=== PATIENT | female | born 1985 ===

== ENCOUNTER 2017-11-11 09:43 | Emergency (ER) | payer OTHER ==
[2017-11-11 09:44] VITALS: BMI 31.1
[2017-11-11 10:04] VITALS: O2SAT 100
--- NOTE | 2017-11-11 10:35 | C.PDOC ---
History Of Present Illness 32 year old female presents to the ED for evaluation of right upper quadrant and right lower quadrant pain which began 6 days ago. Patient also reports nausea. She denies fever, diarrhea, or UTI symptoms. Patient's LMP was 10/19. Patient denies VB. PSH Csection. Patient has been NPO since this morning. History obtained via embroidery operator. VIA TRANS RUQ/RLQ PAIN X 6 DAYS. WORSE W EATING. +NAUSEA NO FEVER. NO DIARRHEA, UTI SX. LMP 10/19. DENIES VB. PSH CSECT. NPO SINCE THIS MORNING. EXAM MOD DIST NONTOXIC HEENT MMM ABD +RUQ/RLQ MOD SOFT NO R/G REMAINDER NEG Time Seen by Provider: 11/11/17 10:03 Chief Complaint (Nursing): Abdominal Pain History Per: Patient History/Exam Limitations: no limitations Onset/Duration Of Symptoms: Days (6) Current Symptoms Are (Timing): Still Present Location Of Pain/Discomfort: RUQ, RLQ Radiation Of Pain To:: None Quality Of Discomfort: "Pain" Associated Symptoms: Nausea. denies: Fever, Chills, Urinary Symptoms Additional History Per: Patient Past Medical History Reviewed: Historical Data, Nursing Documentation, Vital Signs Vital Signs: Last Vital Signs Temp 98.9 F 11/11/17 09:54 Pulse 112 H 11/11/17 09:54 Resp 17 11/11/17 09:54 BP 102/56 L 11/11/17 09:54 Pulse Ox 100 11/11/17 13:31 - Medical History PMH: Asthma, TIA Denies: Chronic Kidney Disease Surgical History: No Surg Hx - [facility] Procedures BILAT TUBAL DIVISION NEC (04/17/15) MONITORING NOS (04/04/15) LOW CERVICAL (04/17/15) MEDICAL INDUCTION LABOR (04/17/15) PACKED CELL TRANSFUSION (12/13/14) Family History: States: Unknown Family Hx - Social History Hx Alcohol Use: No Hx Substance Use: No - Immunization History Hx Tetanus Toxoid Vaccination: No Hx Influenza Vaccination: Yes Hx Pneumococcal Vaccination: No Review Of Systems Constitutional: Negative for: Fever, Chills Gastrointestinal: Positive for: Nausea, Abdominal Pain (right upper quadrant, right lower quadrant ). Negative for: Diarrhea Genitourinary: Negative for: Dysuria, Frequency, Hematuria Physical Exam - Physical Exam Appears: Non-toxic, Other (in moderate distress ) Skin: Normal Color, Warm, Dry Head: Atraumatic, Normacephalic Eye(s): bilateral: Normal Inspection Ear(s): Bilateral: Normal Nose: Normal, No Discharge Oral Mucosa: Moist Throat: Normal, No Erythema, No Exudate Neck: Supple Chest: Symmetrical, No Deformity, No Tenderness Cardiovascular: Rhythm Regular, No Murmur Respiratory: Normal Breath Sounds, No Rales, No Rhonchi, No Wheezing Gastrointestinal/Abdominal: Soft (moderate), Tenderness (to right upper and lower quadrants ), No Guarding, No Rebound Extremity: Normal ROM, Capillary Refill (less than 2 seconds) Neurological/Psych: Oriented x3, Normal Speech, Normal Cognition ED Course And Treatment - Laboratory Results Result Diagrams: 11/11/17 10:59 11/11/17 10:59 O2 Sat by Pulse Oximetry: 100 (on RA ) Pulse Ox Interpretation: Normal Progress Note: Bloodwork, urinalysis, Abdomen US, CT A/P ordered and reviewed. Morphine IVP, Phenergan IM, Zofran IVP, IV Fluids administered. Progress - Re-Evaluation Re-evaluation Note: 11/11/17 13:20 LABS WNL, CT AND US REPORTS REVIEWED. NO SIGNS ACUTE ABD. WILL US RO TORSION/ RUPTURED CYST - Data Reviewed Data Reviewed: Lab, Diagnostic imaging, Old records Disposition Counseled Patient/Family Regarding: Studies Performed, Diagnosis, Need For Followup, Rx Given - Disposition Referrals: [facility] [Outside] [facility] [Outside] Disposition: HOME/ ROUTINE Disposition Time: 15:02 Condition: IMPROVED Prescriptions: Tramadol HCl [Ultram] 50 mg PO QID #20 tab Instructions: Acute Abdomen (Belly Pain), Adult (DC) Forms: [employer] (Burmese), Work Excuse Print Language: UZBEK - Clinical Impression Clinical Impression: Abdominal pain - Scribe Statement The provider has reviewed the documentation as recorded by the Scribe (Azalea Hanna) Provider Attestation: All medical record entries made by the Scribe were at my direction and personally dictated by me. I have reviewed the chart and agree that the record accurately reflects my personal performance of the history, physical exam, medical decision making, and the department course for this patient. I have also personally directed, reviewed, and agree with the discharge instructions and disposition.
[2017-11-11] MEDS ORDERED: Sodium Chloride 0.9% 1,000 ML IV ONE (10:40)
[2017-11-11] MEDS ORDERED: Sodium Chloride 0.9% 1,000 ML ONE (10:55)
[2017-11-11] MEDS ORDERED: Morphine 4 MG/ML VIAL ONE (10:55)
[2017-11-11 11:05] LABS: BASO # 0.1 K/uL (0.0-0.2); BASO % 1.3 % (0.0-2.0); EOS # 0.1 K/uL (0.0-0.7); HEMOGLOBIN 8.5 g/dL (11.0-16.0); LYMPH # 1.3 K/uL (1.0-4.3); LYMPH % 22.4 % (20.0-40.0); MEAN CELL VOLUME 64.1 fL (81.0-99.0); MEAN CORPUSCULAR HEMOGLOBIN 19.4 pg (27.0-31.0); MEAN CORPUSCULAR HGB CONC 30.3 g/dL (33.0-37.0); MEAN PLATELET VOLUME 8.9 fL (7.2-11.7); MONO # 0.7 K/uL (0.0-0.8); MONO % 11.9 % (0.0-10.0); NEUT # 3.7 K/uL (1.8-7.0); NEUT % 63.4 % (50.0-75.0); NRBC % 0.1 % (0.0-2.0); RBC 4.36 Mil/uL (3.80-5.20); RED CELL DISTRIBUTION WIDTH 18.1 % (11.5-14.5); WHITE BLOOD COUNT 5.9 K/uL (4.8-10.8)
[2017-11-11 11:12] LABS: SQUAMOUS EPITHIAL 5 /hpf (0-5); URINE BILIRUBIN NEGATIVE (NEGATIVE); URINE BLOOD NEGATIVE (NEGATIVE); URINE CLARITY Hazy (Clear); URINE COLOR Yellow (YELLOW); URINE GLUCOSE (UA) 2+ mg/dL (Normal); URINE LEUKOCYTE ESTERASE TRACE Leu/uL (Negative); URINE PROTEIN NEGATIVE (NEGATIVE); URINE UROBILINOGEN NORMAL mg/dL (0.2-1.0)
[2017-11-11 11:19] LABS: ALBUMIN 4.1 g/dL (3.5-5.0); ALT/SGPT 20 U/L (9-52); AST/SGOT 18 U/L (14-36); BLOOD UREA NITROGEN 6 mg/dL (7-17); CALCIUM 8.4 mg/dl (8.6-10.4); GFR AFRICAN-AMERICAN > 60; GFR NON-AFRICAN AMERICAN > 60; LIPASE 72 U/L (23-300)
[2017-11-11] MEDS ORDERED: Iodixanol 320 MG/ML 100 ML BOTTLE IV ONE (12:06)
--- NOTE | 2017-11-11 12:46 | US ---
HISTORY: abd pain RUQ COMPARISON: CT abdomen pelvis from 06/10/2016 TECHNIQUE: Sonographic evaluation of the abdomen. FINDINGS: LIVER: Measures 12.5 cm. Heterogeneous echogenicity of the liver parenchyma. No intrahepatic bile duct dilatation. GALLBLADDER: The gallbladder is not abnormally distended. There is no gallbladder wall edema or pericholecystic fluid. No shadowing or echogenic calculus identified. According to the technologist, the sonographic Arellano's sign was not present. COMMON BILE DUCT: Measures 0.3 centimeters. PANCREAS: Limited visualization. RIGHT KIDNEY: Measures 11.3 x 6.2 x 5.5cm. Normal echogenicity. No calculus, mass, or hydronephrosis. LEFT KIDNEY: Not imaged. SPLEEN: Not imaged. AORTA: No aneurysmal dilatation within the visualized segments of the aorta. IVC: The visualized portions of the IVC appear unremarkable. The visualized segments of the portal vein appear patent. OTHER FINDINGS: None. IMPRESSION: Heterogeneous echotexture of the hepatic parenchyma could be due to hepatic steatosis versus parenchymal disease. If indicated, MRI can be obtained for better evaluation.
--- NOTE | 2017-11-11 13:09 | CT ---
PROCEDURE: CT Abdomen and Pelvis with intravenous contrast HISTORY: abd pain RLQ COMPARISON: 06/10/2016 TECHNIQUE: Contrast dose: 100 mL Visipaque 320. No oral contrast given. Radiation dose: Total exam DLP = 634.59 mGy-cm. This CT exam was performed using one or more of the following dose reduction techniques: Automated exposure control, adjustment of the mA and/or kV according to patient size, and/or use of iterative reconstruction technique. FINDINGS: LOWER THORAX: Unremarkable. LIVER: Unremarkable. No gross lesion or ductal dilatation. GALLBLADDER AND BILE DUCTS: Unremarkable. PANCREAS: Unremarkable. No gross lesion or ductal dilatation. SPLEEN: Unremarkable. ADRENALS: Unremarkable. No mass. KIDNEYS AND URETERS: Unremarkable. No hydronephrosis. No solid mass. VASCULATURE: Unremarkable. No aortic aneurysm. BOWEL: Unremarkable. No obstruction. No gross mural thickening. APPENDIX: No acute inflammatory changes identified around appendix. Near the base of the appendix, there is a 1.1 centimeters cystic structure which has remained stable in appearance and size since the prior CT from 06/10/2016. It is unclear whether this structure is associated the appendix or the surrounding bowel. PERITONEUM: Unremarkable. No free fluid. No free air. LYMPH NODES: Unremarkable. No enlarged lymph nodes. BLADDER: Contrast filled bowel limits evaluation. REPRODUCTIVE: Please note that evaluation of gynecologic organs is not optimal on CT imaging. Reduction in size of the complex cystic structure in the left adnexa. It measures approximately 3.2 x 3.3 centimeters in the axial plane in the current evaluation. It measured approximately 4.2 x 4 centimeters in the previous CT from 06/10/2016. Follow-up with ultrasound can be obtained if indicated. BONES: No acute fracture. OTHER FINDINGS: None. IMPRESSION: No acute inflammatory changes surrounding the appendix. Stable appearance of 1.1 centimeter cystic structure near the base of the appendix. It is unclear whether this structure is associated with the appendix or the surrounding bowel. Reduction in size of the complex cystic structure in the left adnexa. Follow-up with ultrasound should be obtained to evaluate for resolution. Other findings as above.
--- NOTE | 2017-11-11 14:37 | US ---
Pelvic ultrasound (transabdominal/transvaginal). History: Right pelvic pain. Comparison: CT of the abdomen and pelvis done on the same day. Technique: Transabdominal and transvaginal ultrasonography images of the pelvis were obtained. Findings: The uterus is anteverted and measures 13 x 6 x 7 centimeters. The myometrium appears heterogeneous. No intrauterine gestational sac identified. The endometrium is suboptimally seen however grossly measures 0.6 centimeters. Cervix is suboptimally evaluated. Small amount of fluid is seen in the cul-de-sac. The right ovary measures 2.5 x 1.6 x 2.8 centimeters. Doppler flow seen in the right ovary. The left ovary measures 3.8 x 2.1 x 3.8 centimeters. A mildly complex cyst measuring 1.7 centimeters corresponding to the cyst seen on the CT was also seen. Doppler flow seen in the left ovary. Impression: No evidence of acute ovarian torsion at the time of evaluation. Mildly complex cyst seen in the left ovary measuring 1.7 centimeters. Follow-up can be obtained with ultrasounds to evaluate for resolution. Heterogeneous myometrium. If indicated, MRI of the pelvis can be obtained for evaluation of a nonemergent basis. Small amount of fluid in the cul-de-sac. Findings were discussed with Dr. Ceballos at the time of dictation at approximately 14:35 p.m. 11/11/2017.
[2017-11-11 15:20] VITALS: BP 125/77; PULSE 90; RESP 18; TEMP 98.5
== END 2017-11-11 15:25 | disposition home or self-care (01) ==
LOC: C.ER 09:43
DX: R10.31 Right lower quadrant pain (principal)
CPT/HCPCS: 74177; 76705; 76830; 76856; 80053; 81001; 83690; 85025; 96372; 96374; 99285; J2270; J2550; J7040; Q9967

== ENCOUNTER 2018-10-27 16:38 | Emergency (ER) | payer OTHER | END 2018-10-27 19:59 | disposition home or self-care (01) | LOC: C.ER 16:38 ==